=== PATIENT | male | born 1995 ===

== ENCOUNTER 2018-05-02 01:32 | Emergency (ER) | payer MEDICAID ==
[2018-05-02 01:54] VITALS: TEMP 99.1
--- NOTE | 2018-05-02 02:20 | C.PDOC ---
History Of Present Illness patient presents with rectal pain from a hemorrhoid. No f/c/n/v Sharp, burning pain. No rectal bleeding Time Seen by Provider: 05/02/18 02:20 Chief Complaint (Nursing): Medical Clearance History Per: Patient History/Exam Limitations: no limitations Onset/Duration Of Symptoms: Days Current Symptoms Are (Timing): Still Present Severity: Moderate Pain Scale Rating Of: 4 Past Medical History Vital Signs: Last Vital Signs Temp 99.1 F 05/02/18 01:46 Pulse 65 05/02/18 01:46 Resp 20 05/02/18 01:46 BP 123/68 05/02/18 01:46 Pulse Ox 97 05/02/18 02:29 Family History: States: No Known Family Hx - Social History Hx Alcohol Use: No Hx Substance Use: No - Immunization History Hx Tetanus Toxoid Vaccination: No Hx Influenza Vaccination: No Hx Pneumococcal Vaccination: No Review Of Systems Constitutional: Negative for: Fever, Chills Gastrointestinal: Positive for: Rectal Pain. Negative for: Nausea, Vomiting Genitourinary: Negative for: Dysuria Neurological: Negative for: Weakness Psych: Negative for: Anxiety Physical Exam - Physical Exam Appears: Non-toxic Skin: Warm, Dry Gastrointestinal/Abdominal: Soft, No Tenderness, No Distention Rectal: Hemorrhoids, Tenderness Back: Normal Inspection Neurological/Psych: Oriented x3 ED Course And Treatment O2 Sat by Pulse Oximetry: 97 Pulse Ox Interpretation: Normal Disposition Counseled Patient/Family Regarding: Studies Performed, Diagnosis, Need For Followup - Disposition Referrals: [facility] [Outside] [facility] [Outside] Susanna Jim MD [Staff Provider] - Disposition: HOME/ ROUTINE Disposition Time: 02:20 Condition: FAIR Additional Instructions: Please return if symptoms recur Prescriptions: Hydrocortisone 2.5% (Rectal) [Anusol-HC] 30 applic AR BID #30 tube Polyethylene Glycol 3350 [Miralax] 17 gm PO DAILY #270 ml Instructions: Hemorrhoids (DC) Forms: [employer] (Vincentian) - Clinical Impression Clinical Impression: Acute hemorrhoid
[2018-05-02 02:47] VITALS: BP 120/70; PULSE 70; RESP 14; O2SAT 98
== END 2018-05-02 02:47 | disposition home or self-care (01) ==
LOC: C.ER 01:32
DX: K64.9 Unspecified hemorrhoids (principal)

== ENCOUNTER 2018-05-07 07:04 | Emergency (ER) | payer MEDICAID ==
[2018-05-07 07:10] VITALS: BP 105/56; PULSE 64; TEMP 98.5; O2SAT 98
[2018-05-07] MEDS ORDERED: Lidocaine 4% (Laryng-O-Jet) Kit MM ONE (07:56)
[2018-05-07 08:16] VITALS: RESP 18
--- NOTE | 2018-05-07 10:21 | C.PDOC ---
History Of Present Illness 22 year old male patient presents to the ER with c/o external hemorrhoid that bled this morning. Patient denies fever, chills, abdominal pain, pain in area, constipation and hematochezia. Patient was seen last week for the same complaint but did not f/u as instructed. Chief Complaint (Nursing): Abnormal Skin Integrity History Per: Patient History/Exam Limitations: no limitations Current Symptoms Are (Timing): Still Present Past Medical History Reviewed: Historical Data, Nursing Documentation, Vital Signs Vital Signs: Last Vital Signs Temp 98.5 F 05/07/18 07:17 Pulse 64 05/07/18 07:17 Resp 18 05/07/18 08:12 BP 105/56 L 05/07/18 07:17 Pulse Ox 98 05/07/18 10:30 Family History: States: No Known Family Hx - Social History Hx Alcohol Use: No Hx Substance Use: No - Immunization History Hx Tetanus Toxoid Vaccination: No Hx Influenza Vaccination: No Hx Pneumococcal Vaccination: No Review Of Systems Except As Marked, All Systems Reviewed And Found Negative. Constitutional: Negative for: Fever, Chills Gastrointestinal: Negative for: Abdominal Pain Genitourinary: Negative for: Other (hematochezia; constipation; pain on area) Physical Exam - Physical Exam Appears: Non-toxic, No Acute Distress Skin: Normal Color, Warm, Dry Head: Atraumatic, Normacephalic Eye(s): bilateral: Normal Inspection Oral Mucosa: Moist Chest: Symmetrical, No Deformity Cardiovascular: Rhythm Regular Respiratory: Normal Breath Sounds Gastrointestinal/Abdominal: Soft, No Tenderness Rectal: Hemorrhoids, Tenderness, No Other (active bleeding; thrombosed) Extremity: Normal ROM (x4) Neurological/Psych: Oriented x3, Normal Speech Gait: Steady ED Course And Treatment O2 Sat by Pulse Oximetry: 98 (RA) Pulse Ox Interpretation: Normal Medical Decision Making Medical Decision Making: Impression: External hemorrhoids Plans: -- Lidocaine 2% Viscous 15 ml PO Reassess: Patient is resting comfortably, in no distress, abdomen is soft, no rebound or guarding, and is tolerating PO. Patient is in NAD. Patient is instructed to f/u with motorcycle mechanic in 1-2 days. Disposition - Disposition Referrals: Liborio Nails MD [Staff Provider] - Disposition: HOME/ ROUTINE Disposition Time: 07:40 Condition: GOOD Additional Instructions: LILLIAN REED, thank you for letting us take care of you today. The emergency medical care you received today was directed at your acute symptoms. If you were prescribed any medication, please fill it and take as directed. It may take several days for your symptoms to resolve. Return to the Emergency Department if your symptoms worsen, do not improve, or if you have any other problems. Please contact your doctor or call one of the physicians/clinics you have been referred to that are listed on the Patient Visit Information form that is included in your discharge packet. Bring any paperwork you were given at discharge with you along with any medications you are taking to your follow up visit. Our treatment cannot replace ongoing medical care by a primary care provider outside of the emergency department. Thank you for allowing the [facility] team to be part of your care today. Follow up with Dr. Nails, the surgeon, in 3-5 days for re-evaluation and further management. Instructions: Hemorrhoids (DC) Forms: [email or web address] (Ukrainian) - Clinical Impression Clinical Impression: Hemorrhoids - Scribe Statement The provider has reviewed the documentation as recorded by the Scribe Alvarez Do Provider Attestation: All medical record entries made by the Scribe were at my direction and personally dictated by me. I have reviewed the chart and agree that the record accurately reflects my personal performance of the history, physical exam, medical decision making, and the department course for this patient. I have also personally directed, reviewed, and agree with the discharge instructions and disposition.
== END 2018-05-07 08:16 | disposition home or self-care (01) ==
LOC: C.ER 07:04
DX: K64.4 Residual hemorrhoidal skin tags (principal)